=== PATIENT | male | born 1985 | race Two or more races ===

== ENCOUNTER 2024-11-11 13:46 | Emergency (ER) | payer OTHER ==
[2024-11-11] MEDS ORDERED: ORPHENADRINE CITRATE 30 MG/ML AMPUL ONE (16:29)
[2024-11-11] MEDS ORDERED: KETOROLAC TROMETHAMINE 60 MG VIAL IM ONE ×2 (16:30)
[2024-11-11] MEDS ORDERED: ORPHENADRINE CITRATE 30 MG/ML AMPUL IM ONE (16:30)
[2024-11-11 16:48] LABS: BASO % 0.1 % (0.1-1.2); EOS # 0.38 (0.04-0.54); EOS % 3.9 % (0.7-7.0); HEMATOCRIT 47.1 % (40.1-51.0); HEMOGLOBIN 15.8 g/dL (13.7-17.5); LYMPH # 2.19 (1.18-3.74); LYMPH % 22.2 % (19.3-53.1); MEAN CORPUSCULAR HEMOGLOBIN 28.8 pg (25.6-32.2); MONO # 0.61 (0.24-0.82); MONO % 6.2 % (4.7-12.5); NEUT # 6.64 (1.56-6.13); NEUT % 67.4 % (34.0-71.1); PLATELET COUNT 324 K/uL (163-369); RED BLOOD COUNT 5.48 M/uL (4.63-6.08)
[2024-11-11] MEDS ORDERED: KETO10TA2 PO (17:23)
== END 2024-11-11 17:30 | disposition home or self-care (01) ==
LOC: ER 13:46
PROVIDERS: General Practice
DX: R07.89 Other chest pain (principal); M54.50 Low back pain, unspecified